=== PATIENT | male | born 1940 | race Caucasian/White ===

== ENCOUNTER 2020-11-27 11:31 | Emergency (ER) | payer MEDICARE, BC ==
[~2020-11-27] VITALS: Ht 188 cm; Wt 88.5 kg
[~2020-11-27 11:31] MED LIST: ALLOPURINOL300 MG PO; ASPIRIN325 MG PO; FISH OIL500 MG PO; L-ARGININE1000 MG PO; LISINOPRIL-HCT1 EAC2 PO; NORCO 5-325 TA1 EACH PO; NORVASC5 MG PO; PRESERVISION A1 EAC3 PO; TERAZOSIN HCL2 MG PO
[2020-11-27] MEDS ORDERED: ATORVASTATIN CA20 MG PO (11:48)
[2020-11-27] MEDS ORDERED: CYANOCOBAL1000 MCG/M IM (11:49)
[2020-11-27] MEDS ORDERED: ASPIRIN81 MG PO (11:49)
[2020-11-27] MEDS ORDERED: LUTEIN20 MG PO (11:49)
--- NOTE | 2020-11-28 03:12 | EKG ---
[facility] [address] [facility] [place] [address] Signed Sinus bradycardia with occasional premature ventricular complexes and premature atrial complexes Nonspecific ST and T wave abnormality Abnormal ECG No previous ECGs available Confirmed by RALF POND MD ([id number] on 11/28/2020 3:12:19 AM Electronically Signed By: RALF POND MD 11/28/20311 PATIENT NAME: LISETTE CISNEROS ARLEN Electrocardiogram DATE OF : 36 PHYSICIAN: RALF POND MD REPORT #: [id number] REPORT IS CONFIDENTIAL AND NOT TO BE RELEASED WITHOUT AUTHORIZATION
== END 2020-11-27 14:25 | disposition home or self-care (01) ==
LOC: ED 11:31
DX: R07.89 Other chest pain (principal); K59.00 Constipation, unspecified; R14.2 Eructation; I10 Essential (primary) hypertension; N40.0 Benign prostatic hyperplasia without lower urinary tract symptoms; Z87.891 Personal history of nicotine dependence; Z88.2 Allergy status to sulfonamides; Z79.899 Other long term (current) drug therapy; Z79.82 Long term (current) use of aspirin
CPT/HCPCS: 71045; 80053; 83735; 84484; 85025; 93005; 93010; 99285-25

== ENCOUNTER 2023-01-16 11:28 | Emergency (ER) | payer OTHER, MEDICARE ==
[~2023-01-16] VITALS: Ht 188 cm; Wt 83.1 kg
--- OUTSIDE RECORDS SUMMARY | ~2023-01-16 | XMS | Continuity of Care Document ---
Demographics + + + | Address | [address] | | | [place] [address] | + + + | Preferred Language | Unknown | + + + | Marital Status | | + + + | Scientology Affiliation | Unknown | + + + | Race | White | + + + | Ethnic Group | Not or | + + + Author + + + | Author | [facility] | + + + | Organization | [facility] | + + + | Address | [address] | | | [place] [address] | + + + | Phone | | + + + Care Team Providers + + + + | Care Associate Consulting Engineer Name | Role | Phone | + + + + Unavailable | Unavailable | + + + + Unavailable | Unavailable | + + + + Allergies and Intolerances + + + + + | date | description | facility | type | + + + + + | (no date) | Sulfamethoxazole | [facility] ([facility] | | + + + + + | (no date) | Rash | [facility] (unknown[facility] | | [facility] | | + + + + + | (no date) | Sulfamethoxazole | [facility] | (unknown) | | | | Hospital | | + + + + + | (no date) | Sulfamethoxazole | [facility] | (unknown) | | | | Hospital | | + + + + + Encounters No information. Functional Status No information. Immunizations No information. Medications + + + + | date | description | facility | + + + + | 2022-12-24 00:00 | | [facility] | | | LISINOPRIL/HYDROCHLOROTHIAZ | | | | UNA | | + + + + | 2022-12-24 00:00 | ASPIRIN | [facility] | + + + + | 2022-12-24 00:00 | AMLODIPINE BESYLATE | [facility] | + + + + | 2022-12-24 00:00 | CYANOCOBALAMIN | [facility] | + + + + | 2022-12-24 00:00 | TERAZOSIN HCL | [facility] | + + + + | 2022-12-24 00:00 | ASPIRIN | [facility] | + + + + | 2022-12-24 00:00 | ATORVASTATIN CALCIUM | [facility] | + + + + | 2022-12-24 00:00 | ARGININE HCL | [facility] | + + + + | 2016-05-19 00:00 | HYDROCODONE | [facility] | | | BIT/ACETAMINOPHEN | | + + + + Problems + + + + | date | description | facility | + + + + | 2014-06-13 00:00 | Visual disturbance | [facility] | + + + + | 2015-03-05 00:00 | Chest pain | [facility] | + + + + | 2016-05-19 00:00 | Sprain of right knee | [facility] | + + + + | 2022-12-24 00:00 | Contusion of right | [facility] | | | shoulder | | + + + + | 2022-12-24 00:00 | Traumatic hematoma of | [facility] | | | right forearm | | + + + + Procedures No information. Results/Labs No information. Social History No information. Vital Signs + + + +---------+ | date | measurement | value | units | + + + +---------+ | 2022-12-24 00:00 | BMI | 23.8 | kg/m2 | + + + +---------+ | 2022-12-24 00:00 | BP_diastolic | 67 | mmHg | + + + +---------+ | 2022-12-24 00:00 | BP_systolic | 136 | mmHg | + + + +---------+ | 2022-12-24 00:00 | heart_rate | 61 | /min | + + + +---------+ | 2022-12-24 00:00 | height_metric | 187.96 | cm | + + + +---------+ | 2022-12-24 00:00 | height_standard | 74 | in | + + + +---------+ | 2022-12-24 00:00 | o2_saturation | 99 | % | + + + +---------+ | 2022-12-24 00:00 | respiration_rate | 18 | /min | + + + +---------+ | 2022-12-24 00:00 | temperature_metric | 36.72 | C | | | | | | + + + +---------+ | 2022-12-24 00:00 | | 98.1 | F | | | temperature_standar | | | | | d | | | + + + +---------+ | 2022-12-24 00:00 | weight_metric | 84 | kg | + + + +---------+ | 2022-12-24 00:00 | weight_standard | 185.19 | lb | + + + +---------+"
[~2023-01-16 11:28] MED LIST changes: +ASPIRIN81 MG PO; +ATORVASTATIN CA20 MG PO; +CYANOCOBAL1000 MCG/M IM; +LUTEIN20 MG PO
--- OUTSIDE RECORDS SUMMARY | 2023-01-16 11:36 | XMS ---
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 Harshal has no Care Guidelines for this patient. [place] [facility] (12 MO.) [facility] TOTAL 3 NOTE: Visits indicate total known visits. 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
[2023-01-16] MEDS ORDERED: DICLOFENAC SOD100 GM TOP (13:08)
[2023-01-16 13:23] VITALS: BP 107/52
== END 2023-01-16 13:24 | disposition home or self-care (01) ==
LOC: ED 11:28
DX: M25.511 Pain in right shoulder (principal); Z79.899 Other long term (current) drug therapy; Z79.82 Long term (current) use of aspirin; Z88.8 Allergy status to other drugs, medicaments and biological substances; Z87.891 Personal history of nicotine dependence
CPT/HCPCS: 99283

== ENCOUNTER 2024-02-29 09:39 | Emergency (ER) | payer OTHER, MEDICARE ==
[~2024-02-29] VITALS: Ht 188 cm; Wt 83.3 kg
[~2024-02-29 09:39] MED LIST changes: +DICLOFENAC SOD100 GM TOP
[2024-02-29] MEDS ORDERED: IRON159 MG PO (09:53)
--- OUTSIDE RECORDS SUMMARY | 2024-02-29 10:11 | XMS ---
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 Harshal has no Care Guidelines for this patient. [place] [facility] (12 MO.) [facility] [address] [place] [address] Jesus (Bridgette [place]) TOTAL 3 NOTE: Visits indicate total known visits. 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
[2024-02-29] MEDS ORDERED: IBUPROFEN 800 MG TAB PO ONE (10:15)
[2024-02-29 11:52] VITALS: BP 134/70
== END 2024-02-29 11:52 | disposition home or self-care (01) ==
LOC: ED 09:39
DX: R07.0 Pain in throat (principal); Z88.2 Allergy status to sulfonamides; Z91.018 Allergy to other foods; Z79.899 Other long term (current) drug therapy; Z87.891 Personal history of nicotine dependence
CPT/HCPCS: 87651; 99284; A9270

== ENCOUNTER 2024-03-08 12:32 | Emergency (ER) | payer OTHER, MEDICARE ==
[~2024-03-08] VITALS: Ht 188 cm; Wt 84.1 kg
[~2024-03-08 12:32] MED LIST changes: +IRON159 MG PO
--- OUTSIDE RECORDS SUMMARY | 2024-03-08 12:42 | XMS ---
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 Harshal has no Care Guidelines for this patient. [place] VISIT COUNT (12 MO.) 3 [facility] [address] [place] [address] Nikki Lee (Bridgette [place]) TOTAL 4 NOTE: Visits indicate total known visits. ED/C VISIT TRACKING (12 MO.) 03/08/2024 12:32 [facility] [place] TYPE: Emergency COMPLAINT: - SORE THROAT 02/29/2024 09:40 [facility] [place] TYPE: Emergency COMPLAINT: - DIFFICULTY SWALLOWING DIAGNOSES: - Allergy status to sulfonamides - Allergy to other foods - Other correction (current) drug therapy - Pain in throat - Personal history of nicotine dependence 02/24/2024 11:08 [facility] Bridgette BRISENO (Bridgette [place]) TYPE: Emergency DIAGNOSES: - Unspecified iridocyclitis - eye pain - Eye Problem - Facial Swelling 02/21/2024 11:22 [facility] [place] TYPE: Emergency COMPLAINT: - BEE STING DIAGNOSES: - Allergy status to other drugs, medicaments and biological substances - Allergy to other foods - Localized swelling, mass and lump, head - alf (current) use of aspirin - Other correction (current) drug therapy - Personal history of nicotine dependence - Toxic effect of venom of bees, accidental (unintentional), initial encounter INPATIENT VISIT TRACKING (12 MO.) No inpatient visits to display in this time frame [email or web address]
[2024-03-08] MEDS ORDERED: LIDOCAINE 2% VISCOUS 6 ML SYR MM ONE (13:00)
[2024-03-08] MEDS ORDERED: LIDOCAINE 2% (VISCOUS) HCL 15 ML UDC MT ONE (13:15)
[2024-03-08] MEDS ORDERED: LIDOCAINE HCL100 ML MT (14:59)
[2024-03-08 15:05] VITALS: BP 138/65
== END 2024-03-08 15:05 | disposition home or self-care (01) ==
LOC: ED 12:32
DX: J02.9 Acute pharyngitis, unspecified (principal); Z87.891 Personal history of nicotine dependence; Z88.8 Allergy status to other drugs, medicaments and biological substances; Z91.018 Allergy to other foods; Z79.899 Other long term (current) drug therapy; Z11.52 Encounter for screening for COVID-19
CPT/HCPCS: 87651; 99283; U0002

== ENCOUNTER 2024-04-12 10:55 | Emergency (ER) | payer OTHER, MEDICARE ==
[~2024-04-12] VITALS: Ht 188 cm; Wt 83.1 kg
[~2024-04-12 10:55] MED LIST changes: +LIDOCAINE HCL100 ML MT
[2024-04-12] MEDS ORDERED: clindamycin HCL 300 MG CAP PO ONE (11:30)
[2024-04-12] MEDS ORDERED: DIPHTH,PERTUSS(ACELL),TET VAC 0.5 ML SYRINGE IM ONE (11:30)
[2024-04-12] MEDS ORDERED: DOXYCYCLINE HYCLATE 100 MG CAP PO ONE (11:30)
[2024-04-12] MEDS ORDERED: CLEOCIN HCL300 MG PO (12:09)
[2024-04-12] MEDS ORDERED: DOXYCYCLINE HY100 MG PO (12:09)
[2024-04-12 12:19] VITALS: BP 137/70
== END 2024-04-12 12:22 | disposition home or self-care (01) ==
LOC: ED 10:55
DX: L03.011 Cellulitis of right finger (principal); S62.501A Fracture of unspecified phalanx of right thumb, initial encounter for closed fracture; X58.XXXA Exposure to other specified factors, initial encounter; Z87.891 Personal history of nicotine dependence; Z88.2 Allergy status to sulfonamides; Z91.018 Allergy to other foods; Z79.899 Other long term (current) drug therapy
CPT/HCPCS: 73140; 90471; 90715; 99283-25